=== PATIENT | female | born 1955 | race American Indian/Alaskan Native ===

== ENCOUNTER 2016-09-28 10:20 | Emergency (ER) | payer OTHER ==
[2016-09-28 10:40] LABS: Basophils % (Auto) 0.4 % (0.0-1.8); Eosinophils % (Auto) 2.8 % (0.0-4.3); Hemoglobin 13.8 gm/dl (10.1-14.3); Mean Corpuscular HGB Conc 34 % (30-34); Mean Corpuscular Hemoglobin 31 pg (28-32); Mean Corpuscular Volume 93 fl (79-97); Platelet Count 274 K/mm3 (140-440); Red Blood Count 4.42 M/mm3 (3.65-5.03); Red Cell Distribution Width 13.9 % (13.2-15.2); White Blood Count 7.8 K/mm3 (4.5-11.0)
[2016-09-28 11:04] LABS: Bacteria,Urine 4+ /HPF (Negative); Bilirubin,Urine NEG (Negative); Blood,Urine SM (Negative); Ketones,Urine NEG (Negative); Leukocyte Esterase,Urine LG (Negative); Nitrite,Urine NEG (Negative); Protein,Urine <15 mg/dL mg/dL (Negative); Urobilinogen,Urine < 2.0 mg/dL (<2.0)
[2016-09-28 11:15] LABS: Alanine Aminotransferase 12 units/L (7-56); Albumin 4.3 g/dL (3.9-5); Albumin/Globulin Ratio 1.1 %; Alkaline Phosphatase 91 units/L (35-129); Anion Gap 19 mmol/L; BUN/Creatinine Ratio 15.71; Blood Urea Nitrogen 11 mg/dL (7-17); Calcium 9.1 mg/dL (8.4-10.2); Carbon Dioxide 24 mmol/L (22-30); Chloride 102.3 mmol/L (98-107); Glucose 123 mg/dL (65-100); Sodium 141 mmol/L (137-145); Total Protein 8.1 g/dL (6.3-8.2)
[2016-09-28] MEDS ORDERED: MACROBID PO ONE (11:40)
--- NOTE | 2016-09-28 11:47 | Emergency Department Report ---
HPI - General Chief Complaint: Urogenital-Female Time Seen by Provider: 09/28/16 11:30 - HPI HPI: This is a 61-year-old Afro-[place] female presents the emergency department from home with complaint of a one-month history of malodorous yellow vaginal discharge. She denies any history of STD. Her last sexual encounter was in June but was unprotected sex at that time. She denies any significant abdominal or pelvic discomfort. She does have some mild dysuria. No problems with bowel movements. She denies any fever, nausea, vomiting. She has a past medical history of hepatitis C but says that she got treatment for it and upon follow- up she was "looking good." No recent travel or sick contacts at home. She previously moved from [place] and therefore does not have any local primary care physician or SPECIALTY DEVELOPMENT CONSULTANT. ED Past Medical Hx - Past Medical History Previous Medical History?: Yes Additional medical history: Hepatitis C - Surgical History Past Surgical History?: Yes Additional Surgical History: Liver biopsy, Tubaligation - Social History Smoking Status: Current Every Day Smoker Substance Use Type: Alcohol, Marijuana, Prescribed - Medications Home Medications: Home Medications Medication Instructions Recorded Confirmed Last Taken Type Nitrofurantoin [place]/M-Cryst 100 mg PO Q12HR #14 capsule 09/28/16 Unknown Rx [Macrobid CAP] metroNIDAZOLE [Flagyl] 500 mg PO Q12HR #14 tab 09/28/16 Unknown Rx ED Review of Systems ROS: Stated complaint: DISCHARGE/POSS VAG INFECTION Other details as noted in HPI Comment: All other systems reviewed and negative Constitutional: denies: chills, fever Eyes: denies: eye pain, eye discharge, vision change ENT: denies: ear pain, throat pain Respiratory: denies: cough, shortness of breath, wheezing Cardiovascular: denies: chest pain, palpitations Gastrointestinal: denies: nausea, vomiting Genitourinary: dysuria, discharge Musculoskeletal: denies: back pain, joint swelling, arthralgia Skin: denies: rash, lesions Neurological: denies: headache, weakness, paresthesias Physical Exam - Physical Exam Vital Signs: Vital Signs 09/28/16 10:25 Temperature 98.4 F Pulse Rate 69 Respiratory 20 Rate Blood Pressure 190/106 O2 Sat by Pulse 100 Oximetry Physical Exam: GENERAL: The patient is well-developed well-nourished. HEENT: Normocephalic. Atraumatic. Extraocular motions are intact. Patient has moist mucous membranes. Pupils equal reactive to light bilaterally. NECK: Supple. Trachea is midline. CHEST/LUNGS: Clear to auscultation. There is no respiratory distress noted. HEART/CARDIOVASCULAR: Regular. There is no tachycardia. There is no gallop rub or murmur. ABDOMEN: Abdomen is soft, nontender. Patient has normal bowel sounds. There is no abdominal distention. SKIN: There is no rash. There is no edema. There is no diaphoresis. NEURO: The patient is awake, alert, and oriented. The patient is cooperative. The patient has no focal neurologic deficits. The patient has normal speech. MUSCULOSKELETAL: There is no tenderness or deformity. There is no limitation range of motion. There is no evidence of acute injury. : There are no vaginal or cervical lesions seen. There is a mild amount of the malodorous yellowish white discharge seen in the vaginal vault. ED Course Vital Signs 09/28/16 10:25 Temperature 98.4 F Pulse Rate 69 Respiratory 20 Rate Blood Pressure 190/106 O2 Sat by Pulse 100 Oximetry ED Medical Decision Making - Lab Data Result diagrams: 09/28/16 10:34 09/28/16 10:34 - Medical Decision Making 61-year-old female presents the emergency department with some dysuria and vaginal discharge. The patient had unprotected sex about 1-2 months ago. She preferred being treated for possible gonorrhea and chlamydia as opposed to waiting for the test come back. Wet prep was done came back showing no signs of BV but mild Trichomonas. Labs also show a UTI. Patient started on Macrobid and Flagyl. Given referrals for primary care and SPECIALTY DEVELOPMENT CONSULTANT. - Differential Diagnosis BV, trichomoniasis, UTI, gonorrhea Critical Care Time: No Critical care attestation.: If time is entered above; I have spent that time in minutes in the direct care of this critically ill patient, excluding procedure time. ED Disposition Clinical Impression: Vaginal discharge, Trichomonas vaginitis UTI (urinary tract infection) Qualifiers: Urinary tract infection type: acute cystitis Hematuria presence: with hematuria Qualified Code(s): N30.01 - Acute cystitis with hematuria Hypertension Qualifiers: Hypertension type: essential hypertension Qualified Code(s): I10 - Essential ( primary) hypertension Disposition: - TO HOME OR SELFCARE Is pt being admited?: No Condition: Stable Instructions: Trichomoniasis (ED), Urinary Tract Infection in Women (ED), Hypertension (ED) Additional Instructions: Please follow-up with a primary care physician and SPECIALTY DEVELOPMENT CONSULTANT. Take the antibiotics as prescribed. One of the antibiotics, Flagyl/metronidazole, has a very severe reaction to alcohol and should not be taken with any alcohol or alcohol should not be consumed for up to 2 days after finishing this antibiotics. Return to the emergency department with any worsening of your symptoms or any acute distress. Prescriptions: metroNIDAZOLE [Flagyl] 500 mg PO Q12HR #14 tab Nitrofurantoin [place]/M-Cryst [Macrobid CAP] 100 mg PO Q12HR #14 capsule Referrals: PRIMARY CAREMD [Primary Care Provider] - 3-5 Days GRETA ACOSTA MD [Staff Physician] - 3-5 Days [facility] [Outside] - 3-5 Days [facility] [Provider Group] - 3-5 Days [facility] [Provider Group] - 3-5 Days Time of Disposition: 13:38
[2016-09-28] MEDS ORDERED: ZITHROMAX PO ONE (12:10)
[2016-09-28] MEDS ORDERED: XYLOCAINE 1% MPF 5 mL INFILTRATI ONE (12:10)
[2016-09-28] MEDS ORDERED: ROCEPHIN IM ONE (12:10)
[2016-09-28 14:08] VITALS: BP 150/78
== END 2016-09-28 14:31 | disposition home or self-care (01) ==
LOC: ED 10:20
DX: N89.8 Other specified noninflammatory disorders of vagina (principal); N30.01 Acute cystitis with hematuria; I10 Essential (primary) hypertension; A59.01 Trichomonal vulvovaginitis; F12.10 Cannabis abuse, uncomplicated; F17.200 Nicotine dependence, unspecified, uncomplicated; Z86.19 Personal history of other infectious and parasitic diseases
CPT/HCPCS: 36415; 80053; 81001; 85025; 87210; 96372; 99284; J0696

== ENCOUNTER 2017-04-14 07:57 | Emergency (ER) | payer OTHER ==
[2017-04-14] MEDS ORDERED: MOTRIN PO ONE (11:21)
--- NOTE | 2017-04-14 11:21 | Emergency Department Report ---
Blank Doc - Documentation Documentation: Patient is a 62-year-old female who is presenting with left lower back pain. Patient states pain has been present for roughly 1-2 weeks. Patient states it hurts to move however she is worried that she has a kidney infection. Patient has no dysuria or urinary frequency or hematuria this time. Patient most likely has muscular skeletal back pain however because of her concerns and her age will check a urinalysis to rule out hematuria caused by possible kidney stone and patient will be reassessed by an MLP
[2017-04-14 12:39] LABS: Bacteria,Urine 4+ /HPF (Negative); Bilirubin,Urine NEG (Negative); Blood,Urine NEG (Negative); Color,Urine Yellow (Yellow); Hyaline Casts,Urine 1 /LPF; Mucus,Urine 3+ /HPF; Nitrite,Urine NEG (Negative); Protein,Urine <15 mg/dL mg/dL (Negative)
--- NOTE | 2017-04-14 13:00 | Emergency Department Report ---
HPI - General Chief Complaint: Back Pain/Injury Time Seen by Provider: 04/14/17 11:18 - HPI HPI: This 62-year-old female presents ED complaining of lower back pain for the past week. Patient states last couple of days some pain scar and a little bit worse. Patient states that she did not fall and subsequent trauma or injuries to the back. She denies fever that she says nausea/vomiting/dysuria. Patient states that she normally gets a urinary tract infection often is wondering if this was causing her back pain. She denies vaginal bleeding, discharge. ED Past Medical Hx - Past Medical History Previous Medical History?: Yes Additional medical history: Hepatitis C - Surgical History Additional Surgical History: Liver biopsy, Tubaligation - Social History Smoking Status: Current Every Day Smoker Substance Use Type: Alcohol - Medications Home Medications: Home Medications Medication Instructions Recorded Confirmed Last Taken Type Nitrofurantoin [place]/M-Cryst 100 mg PO Q12HR #14 capsule 09/28/16 Unknown Rx [Macrobid CAP] metroNIDAZOLE [Flagyl] 500 mg PO Q12HR #14 tab 09/28/16 Unknown Rx Ibuprofen [Motrin] 600 mg PO Q8H PRN #30 tablet 04/14/17 Unknown Rx Sulfamethoxazole/Trimethoprim 1 each PO BID #14 tablet 04/14/17 Unknown Rx [Bactrim DS TAB] ED Review of Systems ROS: Stated complaint: LOW BACK PAIN Other details as noted in HPI Constitutional: denies: chills, fever Eyes: denies: eye pain, eye discharge, vision change ENT: denies: ear pain, throat pain Respiratory: denies: cough, shortness of breath, wheezing Cardiovascular: denies: chest pain, palpitations Endocrine: no symptoms reported Gastrointestinal: denies: abdominal pain, nausea, diarrhea Genitourinary: denies: urgency, dysuria, discharge Musculoskeletal: back pain. denies: joint swelling, arthralgia Skin: denies: rash, lesions Neurological: denies: headache, weakness, paresthesias Psychiatric: denies: anxiety, depression Hematological/Lymphatic: denies: easy bleeding, easy bruising Physical Exam - Physical Exam Vital Signs: Vital Signs 04/14/17 04/14/17 08:18 11:31 Temperature 98.4 F Pulse Rate 94 H Respiratory 16 18 Rate Blood Pressure 150/91 O2 Sat by Pulse 99 Oximetry Physical Exam: GENERAL: Alert and oriented x3, no apparent distress, Normal Gait, atraumatic. HEAD: Head is normocephalic and a-traumatic. NECK: Supple. Non edematous, No lymphadenopathy or thyromegaly. No C-spine tenderness LUNGS: Symetrical with respiration, No wheezing, no rales or crackles, CTAB. HEART: S1, S2 present, regular rate and rhythm without murmur, no rubs, no gallops. Non tender to palpation ABDOMEN: No organomegaly was noted,Positive bowel sounds, soft, and non- distended. . Nontender to palpation on all Quadrants, NO CVA tenderness. BACK: Full range of motion, no spinal tenderness, nontender to palpation. SKIN: Warm and dry, No lesions, No ulceration or induration present. ED Course Vital Signs 04/14/17 04/14/17 08:18 11:31 Temperature 98.4 F Pulse Rate 94 H Respiratory 16 18 Rate Blood Pressure 150/91 O2 Sat by Pulse 99 Oximetry ED Medical Decision Making - Medical Decision Making This 62-year-old female presents to the urinary tract infection. ED course: Urinalysis shows positive bacteria, trace ketones I discussed results with the patient. I discussed patient's she is drinking enough water daily, encourage patient to drink cranberry juice I discussed the patient to wipe from front to back I discussed the patient to take antibiotics as prescribed and Motrin as needed for pain Discussed the patient follow up with primary care physician. She is in no acute distress her vital signs are stable. She is neurologically intact and understands instructions given Critical care attestation.: If time is entered above; I have spent that time in minutes in the direct care of this critically ill patient, excluding procedure time. ED Disposition Clinical Impression: UTI (urinary tract infection) Qualifiers: Urinary tract infection type: acute cystitis Hematuria presence: without hematuria Qualified Code(s): N30.00 - Acute cystitis without hematuria Disposition: TO HOME OR SELFCARE Is pt being admited?: No Does the pt Need Aspirin: No Condition: Stable Instructions: Dysuria (ED), Urinary Tract Infection in Women (ED) Additional Instructions: Make sure to follow up with the primary care physician as discussed. Take all your medications as you've been prescribed. Drink plenty of fluids it to 10 glasses a day. Cranberry juice is good as well from preventing UTIs. If you have any worsening symptoms or develop new symptoms please return to ED immediately. Prescriptions: Ibuprofen [Motrin] 600 mg PO Q8H PRN #30 tablet PRN Reason: Pain Sulfamethoxazole/Trimethoprim [Bactrim DS TAB] 1 each PO BID #14 tablet Referrals: PRIMARY CARE, [Primary Care Provider] - 3-5 Days [facility] [Outside] - 3-5 Days [facility] [Outside] - 3-5 Days Forms: Work/School Release Form Time of Disposition: 13:01
[2017-04-14 13:21] VITALS: BP 146/88
== END 2017-04-14 13:19 | disposition home or self-care (01) ==
LOC: ED 07:57
DX: N30.00 Acute cystitis without hematuria (principal); F17.200 Nicotine dependence, unspecified, uncomplicated; Z98.51 Tubal ligation status; Z86.19 Personal history of other infectious and parasitic diseases
CPT/HCPCS: 81001; 99283